=== PATIENT | female | born 1975 | race Caucasian/White ===

== ENCOUNTER 2018-04-30 19:40 | Inpatient (IN) ==
[2018-04-30 18:52] LABS: Bilirubin,Urine Negative (Negative); Blood,Urine Small (Negative); Clarity,Urine Cloudy (Clear); Color,Urine Yellow (Yellow); Glucose,Urine (UA) Normal (Normal); Ketones,Urine Trace mg/dL (Negative); Leukocyte Esterase,Urine Large (Negative); Nitrite,Urine Negative (Negative); Protein,Urine 30 mg/dL (Neg-Trace); Specific Gravity,Urine 1.012 (1.010-1.025); Urobilinogen,Urine Normal (Normal)
[2018-04-30 18:55] LABS: Bacteria,Urine Many per hpf (None-Few); Hyaline Casts,Urine None Seen per lpf (None-Few); Squamous Epithelial Cell,Urine Many per lpf (None-Few); WBC,Urine TNTC per hpf (0-3)
[2018-04-30 18:59] LABS: Basophils % 0.3 %; Eosinophils # 0.1 K/mcL (0.0-0.6); Eosinophils % 0.5 %; Hematocrit 32.2 % (35.3-44.9); Hemoglobin 10.7 g/dL (11.5-15.4); Immature Granulocytes % 0.7 % (0-4); Lymphocytes # 2.2 K/mcL (0.6-4.6); Lymphocytes % 19.6 %; Mean Corpuscular HGB Conc 33.2 g/dL (31.6-35.5); Mean Corpuscular Hemoglobin 28.8 pg (28.0-33.3); Mean Corpuscular Volume 86.8 fL (83.0-100.0); Mean Platelet Volume 10.1 fL (9.4-12.4); Monocytes # 0.7 K/mcL (0.0-1.3); Monocytes % 5.8 %; Neutrophils # 8.2 K/mcL (1.6-8.9); Platelet Count 223 K/mcL (140-400); Red Blood Count 3.71 M/mcL (3.82-4.97); Red Cell Distribution Width 14.3 % (11.5-14.5); Segmented Neutrophils % 73.1 %
[2018-04-30 19:10] LABS: Amorphous Sediment,Urine Few (Few); RBC,Urine 0-3 per hpf (0-3)
[2018-04-30 19:16] LABS: Alanine Aminotransferase 11 Units/L (7-52); Aspartate Amino Transferase 15 Units/L (13-39); BUN/Creatinine Ratio 9 (6-26); Blood Urea Nitrogen 9 mg/dL (6-20); Glucose 105 mg/dL (70-105); Lactate Dehydrogenase 133 Units/L (140-271); Uric Acid 5.6 mg/dL (2.3-7.6); eGFR For African Americans > 60 (> 60); eGFR For Non-African Americans > 60 (> 60)
[2018-04-30 19:30] LABS: Amphetamine Screen,Urine Negative ng/mL (Cutoff=1000); Barbiturate Screen,Urine Negative ng/mL (Cutoff=200); Benzodiazepines Screen,Urine Negative ng/mL (Cutoff=200); Cannabinoid Screen,Urine Negative ng/mL (Cutoff = 50); Cocaine Screen,Urine Negative ng/mL (Cutoff= 300); Creatinine,Urine 52 mg/dL; Opiate Screen,Urine Negative ng/mL (Cutoff=300); Phencyclidine Screen,Urine Negative ng/mL (Cutoff=25); Protein/Creatinine Ratio,Urine 0.87 mg/mg (0.00-0.20)
[~2018-04-30 19:40] MED LIST: *HR* Labetalol 20 MG/4 ML SYRINGE IVP ONE; *HR* Nalbuphine 10 MG/ML AMPUL IVP PRN; Famotidine 20 MG/2 ML VIAL IVP PRN; Metoclopramide 10 MG/2 ML VIAL IVP PRN; Ondansetron 4 MG/2 ML VIAL IVP PRN; miSOPROStol 25 MCG TABLET PO PRN
[2018-04-30] MEDS ORDERED: D5% in Lactated Ringers 1,000 ML IVC SCH (19:45)
[2018-04-30] MEDS ORDERED: Ringers Solution, Lactated 1,000 ML IVC SCH (19:45)
[2018-04-30] MEDS ORDERED: *HR* Labetalol 100 MG/20 ML MDV IVP PRN (19:47)
--- NOTE | 2018-04-30 19:58 | OB/GYN History & Physical ---
Date of Encounter: 04/30/18 Time of Encounter: 19:50 Assessment and Plan (1) Pre-eclampsia Current visit: Yes Status: Acute Admit to Labor and Delivery Induction of labor with Cytotec per protocol Consider pitocin GBS negative Nubain/Epidural per patient request Anticipate vaginal delivery POC discussed with Dr. Mora Qualifiers: Trimester: third trimester Qualified Code(s): O14.93 - Unspecified pre- eclampsia, third trimester (2) Gestational diabetes mellitus in , controlled by oral hypoglycemic drugs Current visit: Yes Status: Acute Accuchecks q 4 hours [id number] for maintenance fluids (3) 36 weeks gestation of Current visit: Yes Status: Acute History of Present Illness Chief complaint: Elevated blood pressure at home HPI: Ms. Smiley is a 42 year old female at 36 weeks and 1 day who presented to triage with reports increased BP at home and swelling in left ankle. She denies any changes in her activity level and stress level for the past several days. Denies FIGUEREDO, visual disturbance and epigastric pain. Denies vaginal bleeding and leaking fluid. States baby moving well. OB history remarkable for three vaginal deliveries, second pregancy was stillbirth at 38 weeks gestation. This complicated by Gestational Diabetes well controlled with oral hypoglycemics. labs: O positive GBS negative Heb B negative HIV negative RPR negative Rubella immune UDS negative Past Med Surg Social Fam HX - Past Medical History Medical history: no medical history Psychiatric history: no psych history - Past Surgical History Additional surgical history: PLYLOPLASTY - Social History Smoking Status: Never smoker Smokeless Tobacco Status: No Alcohol use: none Drug use: none - Family History Sister Name: enzo shin Hx Family Cardiac Disorders: No Hx Family Respiratory Disorders: No Hx Family Cancer: No Hx Family GI Disorders: Yes (crohn's disease) Hx Family Genitourinary Disorders: No Hx Family Endocrine Disorder: No Hx Family Musculoskeletal Disorders: No Hx Family Neuromuscular Disorders: No Hx Family Neurologic Disorders: No Hx Family HEENT Disorders: No Hx Family Autoimmune Disorders: No Hx Family Reproductive Disorders: No Hx Family Psychosocial Disorders: No Hx Family Medical Disorders: No Obstetrical History - Pregnancies : 4 Para: 3 Term: 3 : 0 Ab's: 0 Livin - History/Complications History/Complications: #2 stillbirth at 38 weeks gestation Medications and Allergies One Tablet 04/30/18 [History] metFORMIN 500 PO 04/30/18 [History] 3 Allergy/AdvReac Type Severity Reaction Status Date / Time No Known Allergies Allergy Verified 03/07/16 18:53 Review of System OB All systems PM: reviewed and no additional remarkable complaints except as stated Exam - Constitutional Constitutional: well developed, well nourished, no acute distress - HEENT HEENT: Normocephaly, Mucus Membranes Moist - Neck Neck exam: full ROM, normal inspection - Lungs Respiratory exam: CTAB - Cardiovascular Cardiovascular exam: RRR - Abdomen Abdomen: Present: bowel sounds normal, gravid, non tender - Extremities Extremities exam: full ROM, pedal edema (Mild edema left ankle), warm, radial pulses palpable and symmetrical Deep Tendon Reflex Grade: 1+ Diminished - Vulva Vulva: bilateral: normal - Vagina Vagina: Present: normal moisture - Cervix Dilation: 2 Effacement: 50 Station: -3 Results Result Diagrams: 04/30/18 18:34 04/30/18 18:34 Abnormal lab results WBC 11.3 K/mcL (4.3-11.1) H 04/30/18 18:34 RBC 3.71 M/mcL (3.82-4.97) L 04/30/18 18:34 Hgb 10.7 g/dL (11.5-15.4) L 04/30/18 18:34 Hct 32.2 % (35.3-44.9) L 04/30/18 18:34 Lactate Dehydrogenase 133 Units/L (140-271) L 04/30/18 18:34 Urine Clarity Cloudy (Clear) A 04/30/18 18:34 Urine Protein 30 mg/dL (Neg-Trace) H 04/30/18 18:34 Urine Ketones Trace mg/dL (Negative) H 04/30/18 18:34 Urine Blood Small (Negative) H 04/30/18 18:34 Ur Leukocyte Esterase Large (Negative) H 04/30/18 18:34 Urine Microscopic WBC TNTC per hpf (0-3) H 18 18:34 Ur Squamous Epith Cells Many per lpf (None-Few) H 04/30/18 18:34 Urine Bacteria Many per hpf (None-Few) H 04/30/18 18:34 Ur Culture Indicated? NO. (NO) A 04/30/18 18:34 Protein/Creatinin Ratio 0.87 mg/mg (0.00-0.20) H 04/30/18 18:34 Urine Total Protein 45 mg/dL (1-14) H 04/30/18 18:34 All other labs normal. - VTE Reasons for not Prescribing Prophylaxis: Treatment not Indicated - Low risk for VTE
[2018-04-30] MEDS ORDERED: Oxytocin 20 units/ LR 1000 mL 20 UNIT/1,000 ML BAG IVC SCH (20:00)
--- NOTE | 2018-04-30 20:33 | Anesthesia Evaluation PreOp ---
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 BAILER OPERATOR History: Denies Any Significant HX Other Medical History: Diabetes Type II (gestational), GERD Anesthesia History: No Prior Anesthetic Complications, Past Anesthesia (CLAUDE x 3 , Breast red, pyeloplasty), Problems (none) Alcohol Use: none Drug use: none Medications and Allergies One Tablet 04/30/18 [History] metFORMIN 500 PO 04/30/18 [History] 3 Allergy/AdvReac Type Severity Reaction Status Date / Time No Known Allergies Allergy Verified 03/07/16 18:53 - Meds/Allergy Pre-op Review Medications Reviewed: Yes Allergies Reviewed: Yes Beta Blockers on Current Med List: Yes If Beta Blockers taken, Date/Time (Last Dose taken): [phone] Anesthesia Results - Labs 04/30/18 18:34 04/30/18 18:34 Anesthesia Exam 141/98 105 16 ffht 147 Height: 5'0" Weight: 94 k NPO (# of Hours): 3 Pain Scale: 2 Pain Scale Used: Numeric (1 - 10) - HEENT Pupil (Motor): Pupils equal Mallampati: III Teeth: Normal Oral Opening: Greater than 3 - DUMPER BAILER OPERATOR LOC: Oriented DUMPER BAILER OPERATOR Motor: Normal RUE, Normal LUE, Normal RLE, Normal LLE, Normal Face DUMPER BAILER OPERATOR Sensory: Normal: RUE, LUE, RLE, LLE, Face - Cardiac Rhythm: Regular Murmur: None - Pulmonary Breath Sounds: bilateral Clear Respiratory Effort: Symmetrical Anesthesia Assess/Plan ASA Score: 3 (HTN, Gest DM, MO BMI-40.8) Modified Stanley Scale for Level of Consciousness: Cooperative, oriented, and tranquil Anesthetic Plan: Regional (risks discussed questions answered, consented) Autologous Blood: No Monitoring Plan: Standard Monitors Recovery Plan: Other
[2018-04-30] MEDS ORDERED: *HR* FentaNYL (PF) 100 MCG/2 ML VIAL EP ONE (20:37)
[2018-04-30] MEDS ORDERED: *HR* FentaNYL (PF) 100 MCG/2 ML VIAL ONE (20:43)
[2018-04-30] MEDS ORDERED: Lidocaine -MPF 2% 5 ML VIAL ONE (20:43)
[2018-04-30] MEDS ORDERED: Epidural Premix (fent/bupiv) 110 ML EP SCH (20:45)
[2018-05-01] MEDS ORDERED: Bupivacaine-MPF 0.25% 10 ML VIAL ONE ×2 (09:03→22:51)
--- NOTE | 2018-05-01 09:52 | Anesthesia Procedures ---
Date of Encounter: 05/01/18 Time of Encounter: 09:07 Procedures: Anesthesia - Epidural/Spinal Patient ID/Chart reviewed: Yes Patient examined: Yes OB Eval: Gestational age: 35 OB Eval: : 4 OB Eval: Hx Para: 2 OB Eval: Dilated at (cm): 4 OB Eval: Contractions: Non-stressed pattern Consent Obtained: Yes Supplemental Oxygen: None/Room Air Site Prep: Aseptic Technique, Sterile prep and drape, Povidone-Iodine 1% Patient position: upright Local Anesthetic: Lidocaine 1% Amount of Local Anesthetic used: 5 Touhy Needle Gauge: 18 Touhy Needle Depth (cm): 8 Catheter Depth at Skin (cm): 20 Test Dose (1.5% Lido + Epi): Volume given (mls): 3 Test Dose Result: Negative Loading Dose: 0.25% Marcaine (mls): 5 Loading Dose: Fentanyl (mcg): 100 Loading Dose Administered: Thru Catheter Infusion Med: 0.125% Bupivacaine w/ 2 mcg/ml Fentanyl Infusion Rate (mls/hr): [address]: Tegaderm, Tape Interspace Used: L2-L3 Loss of Resistance (IZA): Yes Blood: No CSF: Yes (see note) Paresthesia: No Procedure: attempted to place epidural at L3-4, met resistance at vertebrae, needle "popped " through to epidural space and noted a few drops of csf in syringe, NOT free flowing spinal fluid. Removed needle and attempted at L2-3 with success and no csf. Patient tolerated procedure well, discussed with patient the possibility of spinal headache and usual course of treatment. Vitals + FHT's: 3 Vital Signs Time 0907 0929 0935 0940 BP 121/73 164/106 153/92 11/100 Pulse 102 102 101 106 FHTs 130 130 130 130
--- NOTE | 2018-05-01 09:54 | OB Labor Progress Note ---
Date of Encounter: 05/01/18 Time of Encounter: 09:52 Labor Progress Note - Subjective Subjective: Patient resting after epidural. Patient declines SVE at this time. Pitocin is at 14 milliunits. - Heart Tones Heart Tones: 140 bpm moderate variability +15x15 accels no decels noted. - Howard Howard: 2-3 min apart - Plan Plan: Continue labor management continue accuchecks Q 4 at this time Continue BP checks Q 15 min
--- NOTE | 2018-05-01 14:21 | OB Labor Progress Note ---
Date of Encounter: 05/01/18 Time of Encounter: 14:18 Labor Progress Note - Subjective Subjective: Patient comfortable with epidural in place. Patient denies any questions or concerns. - Cervix Cervix: 4.5/60/-3 - Heart Tones Heart Tones: 140 bpm moderate variabilty no decels noted. - [place]: 2-4 min apart - Interventions Interventions: SVE discussed patient with Dr. Osorio including BPs, Accuchecks, SVE, FHR and toco. Decision was made to stop Pitocin for 1-2 hours to allow uterine rest and potentially use Cytotec instead of pitocin. Discussed POC with patient. Patient denies any questions or concerns. - Plan Plan: Decision was made to stop Pitocin for 1-2 hours to allow uterine rest and potentially use Cytotec instead of pitocin.
[2018-05-01] MEDS ORDERED: miSOPROStol 100 MCG TABLET PO STA (16:29)
--- NOTE | 2018-05-01 20:38 | OB Labor Progress Note ---
Date of Encounter: 05/01/18 Time of Encounter: 20:36 Labor Progress Note - Subjective Subjective: Patient resting on left side comfortably. Discussed POC with patient. Patient denies any questions or concerns. - Cervix Cervix: 6/70/-2 - Heart Tones Heart Tones: 135 bpm moderate variability +15x15 accels no decels noted. Cat. 1 tracing - Ophiem Ophiem: irregular - Interventions Interventions: SVE, AROM copious amount of clear fluid. Patient tolerated well. - Plan Plan: Continue labor management anticipate SVE
[2018-05-01] MEDS ORDERED: *HR* FentaNYL (PF) 100 MCG/2 ML VIAL ONE (22:51)
--- NOTE | 2018-05-02 04:32 | OB/GYN Procedure Note ---
Delivery - Delivery Date: 05/02/18 Provider: Jennifer Villagran Intrapartum events: prolonged labor- > = 20hr Delivery induction: AROM, oxytocin, misoprostol Delivery monitor: external FHT, external uterine Anesthesia: epidural Quantitated Blood Loss: 400 - Infant (s) Infant A Infant Delivery Date: 05/02/18 Infant Delivery Time: 03:59 Presentation: vertex Position: PATO Route of delivery: Gender: Male Viability: Viable Pounds: 8 Ounces: 2 Weight Gram: 3700 kg at 1 minute: 8 at 5 mins: 8 Shoulder Dystocia: not encountered Specimens collected: cord blood Placenta: spontaneous, uterine exploration Cord: 3 umbilical vessels - Repair Episiotomy: none Laceration Description: Perineal - 1st Degree (repaired with 3-0 vicryl.) - Complications Delivery complications: none - Disposition Mom disposition: stable in LDR disposition: stable in LDR - Comments Comments: Called to LDR patient complete and +1. Patient placed in stirrups and prepped for vaginal delivery. Under maternal effort patient spontaneously delivered a viable male infant over a 1st degree perineal laceration. was placed on maternal abdomen. No nuchal, shoulder dystocia or meconium was encountered. Cord was clamped and cut after pulsations ceased. A first degree laceration was repaired with 3-0 vicryl. Placenta delivered spontaneously and intact. Uterus was explored no blood clots were found. Fundus was firm and bleeding was scant. Pericare provided. All counts correct. Both Mother and in LDR for 2 hour recovery.
[2018-05-02] MEDS ORDERED: Oxytocin 20 units/ LR 1000 mL 20 UNIT/1,000 ML BAG IVC SCH (05:31)
[2018-05-02] MEDS ORDERED: Benzocaine/Menthol 56 GM AEROSOL SPRAY TP PRN (05:31)
[2018-05-02] MEDS ORDERED: Acetaminophen 325 MG TABLET PO PRN (05:31)
[2018-05-02] MEDS: Ibuprofen 600 MG TABLET PO PRN ×3 (07:35→20:35)
[2018-05-02] MEDS: Prenatal Vit/FA 1 EACH TABLET PO SCH (08:40)
[2018-05-03 07:37] VITALS: BP 117/77
--- NOTE | 2018-05-03 08:28 | Discharge Summary ---
Date of Encounter: 05/03/18 Time of Encounter: 08:25 - Discharge Diagnosis (1) Vaginal delivery Priority: Primary Status: Acute Comments: Continue routine care discharge home today follow up with Dr. Ortega in 4 weeks (2) PIH ( induced hypertension) Priority: Secondary Status: Acute Comments: Will continue Labetalol 100mg BID patient will continue to check BPs at home prn Qualifiers: Trimester: third trimester Qualified Code(s): O13.3 - Gestational [ -induced] hypertension without significant proteinuria, third trimester (3) Gestational diabetes mellitus in , controlled by oral hypoglycemic drugs Priority: Secondary Status: Acute Comments: Patient to complete a 2 hour gtt in 6 weeks - Discharge Medications Prescriptions: Ibuprofen [Motrin] 600 mg PO Q6HR PRN #60 tablet PRN Reason: Cramping Labetalol [Trandate] 100 mg PO BID #28 tablet Home Medications: Benzocaine/Menthol [place] [Dermoplast [place]] 1 appl TP QID PRN aerosol 05/03/18 [Rx] Ibuprofen [Motrin] 600 mg PO Q6HR PRN #60 tablet 05/03/18 [Rx] Labetalol [Trandate] 100 mg PO BID #28 tablet 05/03/18 [Rx] Vit/FA 1 each PO DAILY tablet 05/03/18 [Rx] Allergies/Adverse Reactions: 3 Allergy/AdvReac Type Severity Reaction Status Date / Time No Known Allergies Allergy Verified 04/30/18 20:33 Data Procedures and tests throughout hospitalization: Laboratory Tests 04/30/18 04/30/18 04/30/18 18:34 18:34 18:34 WBC 11.3 H RBC 3.71 L Hgb 10.7 L Hct 32.2 L MCV 86.8 MCH 28.8 MCHC 33.2 RDW 14.3 Plt Count 223 MPV 10.1 Immature Gran % 0.7 Seg Neutrophils % 73.1 Lymphocytes % 19.6 Monocytes % 5.8 Eosinophils % 0.5 Basophils % 0.3 Neutrophils # 8.2 Lymphocytes # 2.2 Monocytes # 0.7 Eosinophils # 0.1 Basophils # 0.0 BUN 9 Creatinine 0.96 Est GFR ( Amer) > 60 Est GFR (Non-Af Amer) > 60 BUN/Creatinine Ratio 9 Glucose 105 POC Glucose Uric Acid 5.6 AST 15 ALT 11 Lactate Dehydrogenase 133 L Urine Color Urine Clarity Urine pH Ur Specific [place] Urine Protein Urine Glucose (UA) Urine Ketones Urine Blood Urine Nitrite Urine Bilirubin Urine Urobilinogen Ur Leukocyte Esterase Urine Microscopic RBC Urine Microscopic WBC Ur Squamous Epith Cells Amorphous Sediment Urine Bacteria Hyaline Casts Ur Culture Indicated? Urine Creatinine 52 Protein/Creatinin Ratio 0.87 H Urine Total Protein 45 H Urine Opiates Screen Negative Ur Barbiturates Screen Negative Ur Phencyclidine Scrn Negative Ur Amphetamines Screen Negative U Benzodiazepines Scrn Negative Urine Cocaine Screen Negative U Marijuana (THC) Screen Negative Blood Type Antibody Screen 04/30/18 04/30/18 04/30/18 18:34 18:34 23:56 WBC RBC Hgb Hct MCV MCH MCHC RDW Plt Count MPV Immature Gran % Seg Neutrophils % Lymphocytes % Monocytes % Eosinophils % Basophils % Neutrophils # Lymphocytes # Monocytes # Eosinophils # Basophils # BUN Creatinine Est GFR ( Amer) Est GFR (Non-Af Amer) BUN/Creatinine Ratio Glucose POC Glucose 93 Uric Acid AST ALT Lactate Dehydrogenase Urine Color Yellow Urine Clarity Cloudy A Urine pH 6.0 Ur Specific [place] 1.012 Urine Protein 30 H Urine Glucose (UA) Normal Urine Ketones Trace H Urine Blood Small H Urine Nitrite Negative Urine Bilirubin Negative Urine Urobilinogen Normal Ur Leukocyte Esterase Large H Urine Microscopic RBC 0-3 Urine Microscopic WBC TNTC H Ur Squamous Epith Cells Many H Amorphous Sediment Few Urine Bacteria Many H Hyaline Casts None Seen Ur Culture Indicated? NO. A Urine Creatinine Protein/Creatinin Ratio Urine Total Protein Urine Opiates Screen Ur Barbiturates Screen Ur Phencyclidine Scrn Ur Amphetamines Screen U Benzodiazepines Scrn Urine Cocaine Screen U Marijuana (THC) Screen Blood Type O POSITIVE Antibody Screen NEGATIVE 05/01/18 05/01/18 05/01/18 04:18 07:54 12:14 WBC RBC Hgb Hct MCV MCH MCHC RDW Plt Count MPV Immature Gran % Seg Neutrophils % Lymphocytes % Monocytes % Eosinophils % Basophils % Neutrophils # Lymphocytes # Monocytes # Eosinophils # Basophils # BUN Creatinine Est GFR ( Amer) Est GFR (Non-Af Amer) BUN/Creatinine Ratio Glucose POC Glucose 119 H 99 86 Uric Acid AST ALT Lactate Dehydrogenase Urine Color Urine Clarity Urine pH Ur Specific [place] Urine Protein Urine Glucose (UA) Urine Ketones Urine Blood Urine Nitrite Urine Bilirubin Urine Urobilinogen Ur Leukocyte Esterase Urine Microscopic RBC Urine Microscopic WBC Ur Squamous Epith Cells Amorphous Sediment Urine Bacteria Hyaline Casts Ur Culture Indicated? Urine Creatinine Protein/Creatinin Ratio Urine Total Protein Urine Opiates Screen Ur Barbiturates Screen Ur Phencyclidine Scrn Ur Amphetamines Screen U Benzodiazepines Scrn Urine Cocaine Screen U Marijuana (THC) Screen Blood Type Antibody Screen 05/01/18 05/01/18 05/02/18 15:54 20:37 00:20 WBC RBC Hgb Hct MCV MCH MCHC RDW Plt Count MPV Immature Gran % Seg Neutrophils % Lymphocytes % Monocytes % Eosinophils % Basophils % Neutrophils # Lymphocytes # Monocytes # Eosinophils # Basophils # BUN Creatinine Est GFR ( Amer) Est GFR (Non-Af Amer) BUN/Creatinine Ratio Glucose POC Glucose 94 87 94 Uric Acid AST ALT Lactate Dehydrogenase Urine Color Urine Clarity Urine pH Ur Specific [place] Urine Protein Urine Glucose (UA) Urine Ketones Urine Blood Urine Nitrite Urine Bilirubin Urine Urobilinogen Ur Leukocyte Esterase Urine Microscopic RBC Urine Microscopic WBC Ur Squamous Epith Cells Amorphous Sediment Urine Bacteria Hyaline Casts Ur Culture Indicated? Urine Creatinine Protein/Creatinin Ratio Urine Total Protein Urine Opiates Screen Ur Barbiturates Screen Ur Phencyclidine Scrn Ur Amphetamines Screen U Benzodiazepines Scrn Urine Cocaine Screen U Marijuana (THC) Screen Blood Type Antibody Screen 05/02/18 05/02/18 05/02/18 06:39 10:57 17:42 WBC RBC Hgb Hct MCV MCH MCHC RDW Plt Count MPV Immature Gran % Seg Neutrophils % Lymphocytes % Monocytes % Eosinophils % Basophils % Neutrophils # Lymphocytes # Monocytes # Eosinophils # Basophils # BUN Creatinine Est GFR ( Amer) Est GFR (Non-Af Amer) BUN/Creatinine Ratio Glucose POC Glucose 131 H 106 H 156 H Uric Acid AST ALT Lactate Dehydrogenase Urine Color Urine Clarity Urine pH Ur Specific [place] Urine Protein Urine Glucose (UA) Urine Ketones Urine Blood Urine Nitrite Urine Bilirubin Urine Urobilinogen Ur Leukocyte Esterase Urine Microscopic RBC Urine Microscopic WBC Ur Squamous Epith Cells Amorphous Sediment Urine Bacteria Hyaline Casts Ur Culture Indicated? Urine Creatinine Protein/Creatinin Ratio Urine Total Protein Urine Opiates Screen Ur Barbiturates Screen Ur Phencyclidine Scrn Ur Amphetamines Screen U Benzodiazepines Scrn Urine Cocaine Screen U Marijuana (THC) Screen Blood Type Antibody Screen 05/02/18 23:10 WBC RBC Hgb Hct MCV MCH MCHC RDW Plt Count MPV Immature Gran % Seg Neutrophils % Lymphocytes % Monocytes % Eosinophils % Basophils % Neutrophils # Lymphocytes # Monocytes # Eosinophils # Basophils # BUN Creatinine Est GFR ( Amer) Est GFR (Non-Af Amer) BUN/Creatinine Ratio Glucose POC Glucose 208 H Uric Acid AST ALT Lactate Dehydrogenase Urine Color Urine Clarity Urine pH Ur Specific [place] Urine Protein Urine Glucose (UA) Urine Ketones Urine Blood Urine Nitrite Urine Bilirubin Urine Urobilinogen Ur Leukocyte Esterase Urine Microscopic RBC Urine Microscopic WBC Ur Squamous Epith Cells Amorphous Sediment Urine Bacteria Hyaline Casts Ur Culture Indicated? Urine Creatinine Protein/Creatinin Ratio Urine Total Protein Urine Opiates Screen Ur Barbiturates Screen Ur Phencyclidine Scrn Ur Amphetamines Screen U Benzodiazepines Scrn Urine Cocaine Screen U Marijuana (THC) Screen Blood Type Antibody Screen Labs on day of discharge: Labs from last 24 hours 05/02/18 05/02/18 05/02/18 23:10 17:42 10:57 POC Glucose 208 H 156 H 106 H Date of admission: 04/30/18 23:13 Primary care physician: PCP [place] Discharging clinician: Jennifer Villagran Anticipated date of discharge: 05/03/18 - Patient Status Disposition: Home, Self-Care Condition: Good Functional capacity at discharge: independent ambulation - Discharge Instructions Follow Up With: NONE,PCP [Primary Care Provider] - Frederic Ortega MD [Partnered Physician] - - Diet and Activity Activity: increase activity as tolerated Diet: regular diet Hospital Course Reason for admission: induction of labor Delivery: Episiotomy: none Laceration: 1st degree Other procedures: none complications: none Discharge diagnosis: delivery, pre-eclampsia baby: male (bottle feeding) Time Attestation: Total time spent providing and/or coordinating discharge services: Time Spent: Less than 30 minutes Exam - Constitutional Vitals: Temp Pulse Resp BP Pulse Ox 97.6 F 86 16 117/77 97 05/03/18 07:36 05/03/18 07:36 05/03/18 07:36 05/03/18 07:36 05/03/18 00:25 General appearance IM: A&O X 3, pleasant, answers questions appropriately - Respiratory Respiratory exam: Present: CTAB - Cardiovascular Cardiovascular exam IM: Present: RRR, +S1, +S2 - GI/Abdominal GI/Abdominal exam IM: normal bowel sounds - Uterine Tone: Firm Uterus Position: 1 Finger Below Umbilicus, Midline - Extremities Exam Extremities exam IM: Present: full ROM, normal capillary refill, normal inspection - Neurological Exam Neurological exam: alert, oriented X3, reflexes normal
[2018-05-03] MEDS: Prenatal Vit/FA 1 EACH TABLET PO SCH (08:42)
== END 2018-05-03 11:45 | disposition home or self-care (01) | DRG 775 ==
LOC: 1NENULAB → 1NENUOBS 05-02 05:57
PROVIDERS: ADMIT Obstetrics & Gynecology; ATTEND Obstetrics & Gynecology